=== PATIENT | female | born 2000 ===

== ENCOUNTER 2019-02-22 22:13 | Emergency (ER) | payer MEDICAID ==
[2019-02-22] MEDS ORDERED: Acetaminophen/HYDROcodone 325-5 MG Tab PO ONE (22:14)
[2019-02-22] MEDS ORDERED: Lidocaine 1% 20 ML MDV INJECT ONE (22:14)
--- NOTE | 2019-02-22 23:50 | EDM.PDOC ---
ED HPI GENERAL MEDICAL PROBLEM - General Chief Complaint: Genitourinary Problem Stated Complaint: new lump Time Seen by Provider: 02/22/19 23:35 Source of Information: Reports: Patient History Limitations: Reports: No Limitations - History of Present Illness INITIAL COMMENTS - FREE TEXT/NARRATIVE: 18-year-old female who reports she noticed some pain in her left vulval vaginal area yesterday and tonight while she was taking a shower when she touches that area she noticed a lump on the left vulvovaginal area. She does have a stinging and sharp/sore pain in that area that she rates as 7/10. She has had a vaginal discharge and she is currently on her menses. 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 She was last sexually active about 3- 4 weeks ago. She has had no fever. She's had no chills. She's been able to eat and drink normally. No difficulty breathing. No nausea or vomiting. No abdominal pain. No dysuria. There are no other associated signs or symptoms. There are no other modifying factors. 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 Social & Family History - Tobacco Use Smoking Status *Q: Never Smoker - Alcohol Use Alcohol Use History: No - Recreational Drug Use Recreational Drug Use: No - Sexual History Sexual History: Reports: Single Partner, Vaginal Hunt Other Sexual History Comment: No condoms used. ED ROS GENERAL - Review of Systems Review Of Systems: See Below Constitutional: Reports: No Symptoms HEENT: Reports: No Symptoms Respiratory: Reports: No Symptoms Cardiovascular: Reports: No Symptoms Endocrine: Reports: No Symptoms GI/Abdominal: Reports: No Symptoms : Reports: Discharge, Other (Swelling and pain in left vulvovaginal area) Musculoskeletal: Reports: No Symptoms Skin: Reports: No Symptoms Neurological: Reports: No Symptoms Hematologic/Lymphatic: Reports: No Symptoms Immunologic: Reports: No Symptoms ED EXAM, RENAL/ - Physical Exam Exam: See Below General Appearance: Alert, WD/WN, Anxious, Mild Distress Eye Exam: Bilateral Eye: EOMI, Normal Inspection, PERRL Ears: Normal External Exam, Hearing Grossly Normal Nose: Normal Inspection, Normal Mucosa, No Blood Throat/Mouth: Normal Inspection, Normal Oropharynx, Normal Voice, No Airway Compromise Head: Atraumatic, Normocephalic Neck: Normal Inspection, Supple, Non-Tender, Full Range of Motion Respiratory/Chest: No Respiratory Distress, Lungs Clear, Normal Breath Sounds, No Accessory Muscle Use, Chest Non-Tender Cardiovascular: Normal Peripheral Pulses, Regular Rate, Rhythm, No Murmur GI/Abdominal: Normal Bowel Sounds, Soft, Non-Tender, No Mass (Female) Exam: Vaginal Bleeding, Other (Tender, fluctuant area over her left vulva vaginal area that is 2 x 3 cm. It is tender to palpation.) Back Exam: Normal Inspection. No: CVA Tenderness (R), CVA Tenderness (L) Extremities: Normal Inspection, Normal Range of Motion, Non-Tender, No Pedal Edema, Normal Capillary Refill Neurological: Alert, Oriented, CN II-XII Intact, Normal Cognition, No Motor/ Sensory Deficits Psychiatric: Anxious Skin Exam: Warm, Dry, Intact, Normal Color, No Rash Lymphatic: No Adenopathy ED PROCEDURES - Additional/Other Procedure(s) Procedure(s) (Free Text): After informed verbal consent was obtained from the patient, the left vulva was anesthetized using 1% lidocaine 8 mL around the area of swelling and questionable fluctuance and in the skin overlying this area. There was good anesthesia no complications. The area had been prepped with Betadine. Using a 10 mL syringe with an 18-gauge needle attempts are made to aspirate this area of possible fluctuance without success. Using an 11 blade scalpel the skin over the area of questionable fluctuance was incised and some fluid was expressed. I used a hemostat to break up any loculations and then the area was copiously irrigated with Betadine tinged normal saline. The cavity was then packed with iodoform gauze. An appropriate dressing with a feminine pad was applied over this area. The patient tolerated this well and there were no apparent palpitations. Course - Vital Signs Last Recorded V/S: Last Vital Signs Temp 36.7 C 02/22/19 23:30 Pulse 92 02/22/19 23:30 Resp 18 02/22/19 23:30 BP 135/90 02/22/19 23:30 Pulse Ox 98 02/22/19 23:30 - Orders/Labs/Meds Labs: Laboratory Tests 02/22/19 Range/Units 23:50 Urine HCG, Qual Negative (NEGATIVE) Meds: Medications Discontinued Medications Generic Name Dose Route Start Last Admin Trade Name Freq PRN Reason Stop Dose Admin Doxycycline Hyclate 200 mg 02/23/19 01:37 02/23/19 01:43 Vibra-Tabs PO 02/23/19 01:38 200 mg ONETIME ONE Administration - Re-Assessments/Exams Free Text/Narrative Re-Assessment/Exam: * 02/23/19 01:34: The patient appeared to have the beginning of a Bartholin's cyst abscess on her left vulva. The area was incised and drained and packed with iodoform gauze. The patient will be placed on doxycycline 100 mg by mouth twice a day 10 days (the patient has recently been tested for STDs and was told that it was all negative). A test today was negative. I will also give the patient a take home pack of hydrocodone 5/325. She is to follow- up with either Ms. Radha NP through [facility] or nurse [facility] practitioner this coming week for a recheck. Departure - Departure Time of Disposition: 01:45 Disposition: Home, Self-Care 01 Condition: Good Clinical Impression: Infected cyst of Bartholin's gland duct - Discharge Information Prescriptions: Doxycycline [Vibramycin] 100 mg PO BID 10 Days #20 cap Instructions: Pain Medicine Instructions, [id number], Bartholin's Cyst or Abscess, [id number] Referrals: PCP,None [Primary Care Provider] - Forms: ED Department Discharge Additional Instructions: You had an infected cyst of a Bartholin's gland in your vulvovaginal area. This was incised and drained and packing was placed into it. You should leave the packing in place until Sunday morning. At that time, you should remove the packing and cleaned the area with mild soap and water, flushing the area with lots of water. You should do this twice daily and change the pad and dressing as needed. Medication as prescribed (doxycycline, hydrocodone 5/325). You will need to follow-up with either your provider through the [facility] this coming week or with Sandra Malhotra NP. Back to the emergency department for marked increase in pain, redness, high fever or any other concerning sign or symptom.
[2019-02-23] MEDS ORDERED: Doxycycline 100 MG Tab PO ONE (01:37)
== END 2019-02-23 01:55 | disposition home or self-care (01) ==
LOC: FB.ED 22:13
DX: N75.1 Abscess of Bartholin's gland (principal); Z79.899 Other long term (current) drug therapy
CPT/HCPCS: 56420; 81025; 99283; A9270; J2001; 10060